=== PATIENT | male | born 1980 | race Asian ===

== ENCOUNTER 2021-03-11 14:56 | Emergency (ER) | payer OTHER ==
[2021-03-11 15:04] VITALS: BP 112/76; PULSE 76; TEMP 98.2; BMI 29.2
[2021-03-11] MEDS ORDERED: KETOROLAC TROMETHAMINE 60 MG/2 ML VIAL IM ONE (15:57)
[2021-03-11] MEDS ORDERED: KETOROLAC TROMETHAMINE 60 MG/2 ML VIAL ONE (15:58)
== END 2021-03-11 17:17 | disposition home or self-care (01) ==
LOC: JERFT 14:56
PROC: 3E0233Z Introduction of Anti-inflammatory into Muscle, Percutaneous Approach (ICD-10-PCS; principal; 2021-03-11)
DX: M54.2 Cervicalgia (principal)
CPT/HCPCS: 99284-25

== ENCOUNTER 2022-09-10 10:40 | Emergency (ER) | payer OTHER ==
[2022-09-10 10:44] VITALS: BP 140/80; PULSE 58; RESP 18; TEMP 97.9; BMI 27.3
[2022-09-10] MEDS ORDERED: IBUPROFEN 600 MG TABLET (FP) PO ONE ×2 (11:37→11:53)
== END 2022-09-10 12:04 | disposition home or self-care (01) ==
LOC: JERFT 10:40
DX: S03.41XA Sprain of jaw, right side, initial encounter (principal); Y99.9 Unspecified external cause status
CPT/HCPCS: 99283-25